=== PATIENT | male | born 1955 | race Caucasian/White ===

== ENCOUNTER → 2023-08-22 06:25 | Day surgery (SDC) | payer MEDICARE, OTHER, SELFPAY ==
[2023-08-22 14:16] LABS: Glucose - Point of Care 101 mg/dl (70-99)
== END ==
LOC: GI 06:25
PROVIDERS: ATTENDING PHYSICIAN Internal Medicine
DX: Z12.11 Encounter for screening for malignant neoplasm of colon (principal); D12.2 Benign neoplasm of ascending colon; K57.30 Diverticulosis of large intestine without perforation or abscess without bleeding; Z86.010 Personal history of colon polyps
CPT/HCPCS: 45380; 88305; 82962

== ENCOUNTER → 2024-10-04 14:22 | Outpatient (REF) | payer MEDICARE, OTHER, SELFPAY | LOC: HWRAD 14:22 | PROVIDERS: ATTENDING PHYSICIAN Physician Assistant; FAMILY PHYSICIAN Family Medicine | DX: M79.674 Pain in right toe(s) (principal) | CPT/HCPCS: 73630 ==